=== PATIENT | female | born 1945 | race Caucasian/White ===

== ENCOUNTER 2019-04-21 09:07 | Outpatient (CLI) | payer MEDICARE, SELFPAY ==
[2019-04-21 09:41] LABS: Basophils Absolute Auto 0.1 K/mm3 (0.0-0.1); Basophils Percent Auto 0.7 % (0.2-1.2); Eosinophils Absolute Auto 0.1 K/mm3 (0-0.3); Eosinophils Percent Auto 1.3 % (0-4.4); Hematocrit 47.5 % (37.0-47.0); Hemoglobin 15.4 g/dL (12.0-15.0); Immature Granulocyte Absolute 0.02 K/mm3 (0.00-0.031); Immature Granulocyte Percent A 0.3 % (0-0.5); Lymphocytes Absolute Auto 1.16 K/mm3 (0.9-3.2); Lymphocytes Percent Auto 16.1 % (18.3-44.2); Mean Corpuscular HGB Conc 32.4 g/dl (32-36); Mean Corpuscular Hemoglobin 30.1 pg (26-34); Mean Corpuscular Volume 92.8 fl (80-100); Monocytes Absolute Auto 0.6 K/mm3 (0.1-0.6); Monocytes Percent Auto 8.1 % (2.6-8.5); Neutrophils Absolute Auto 5.3 K/mm3 (1.3-6.7); Neutrophils Percent Auto 73.5 % (45.5-73.1); Platelet Count Result 226 k/mm3 (150-375); Red Blood Count 5.12 M/mm3 (4.2-5.4); Red Cell Distribution Width 12.7 % (11.5-14.5); White Blood Count 7.2 K/mm3 (4.5-10.0)
[2019-04-21 09:57] LABS: Alanine Aminotransferase 29 U/L (4-35); Albumin Level 4.1 g/dL (3.5-5.1); Alkaline Phosphatase 87 U/L (38-126); Aspartate Amino Transferase 32 U/L (14-36); Bilirubin,Total 0.9 mg/dL (0.2-1.3); Blood Urea Nitrogen 17 mg/dL (7-17); Calcium 9.7 mg/dL (8.4-10.2); Carbon Dioxide 33 mmol/L (22-30); Chloride 99 mmol/L (98-107); Estimated Glomerular Filt Rate > 60; Glucose 102 mg/dL (65-105); Potassium 4.8 mmol/L (3.4-5.0); Sodium 143 mmol/L (137-145)
[2019-04-24 04:56] LABS: CA 15-3 14 U/mL (<32)
== END 2019-04-21 09:08 | disposition home or self-care (01) ==
LOC: ANHLAB 09:13
PROVIDERS: PCP Internal Medicine; Visit Provider Internal Medicine Hematology & Oncology
DX: C50.919 Malignant neoplasm of unspecified site of unspecified female breast (principal); Z17.1 Estrogen receptor negative status [ER-]
CPT/HCPCS: 36415; 80053; 85025; 86300

== ENCOUNTER 2019-10-03 07:16 | Outpatient (CLI) | payer MEDICARE, SELFPAY ==
[2019-10-03 07:51] LABS: Hemoglobin A1C 5.4 % (<5.7)
[2019-10-03 07:56] LABS: Alanine Aminotransferase 23 U/L (4-35); Albumin Level 3.8 g/dL (3.5-5.1); Alkaline Phosphatase 86 U/L (38-126); Anion Gap 10.3 mmol/L (7-16); Aspartate Amino Transferase 28 U/L (14-36); Bilirubin,Total 0.6 mg/dL (0.2-1.3); Blood Urea Nitrogen 23 mg/dL (7-17); Calcium 9.1 mg/dL (8.4-10.2); Carbon Dioxide 30 mmol/L (22-30); Chloride 103 mmol/L (98-107); Cholesterol 132 mg/dL (0-200); Estimated Glomerular Filt Rate > 60; Glucose 92 mg/dL (65-105); HDL Direct 38 mg/dL; Potassium 4.3 mmol/L (3.4-5.0); Sodium 139 mmol/L (137-145); Triglycerides 89 mg/dL (<150)
[2019-10-03 08:07] LABS: LDL Cholesterol Direct 73 mg/dL
== END 2019-10-03 07:17 | disposition home or self-care (01) ==
PROVIDERS: PCP Internal Medicine; Visit Provider Internal Medicine
DX: E11.9 Type 2 diabetes mellitus without complications (principal); I10 Essential (primary) hypertension; Z79.899 Other long term (current) drug therapy; E78.2 Mixed hyperlipidemia
CPT/HCPCS: 36415; 80053; 80061; 83036

== ENCOUNTER 2020-01-05 08:08 | Outpatient (CLI) | payer MEDICARE, SELFPAY ==
--- NOTE | ~2020-01-05 | MM_ITS ---
EXAMINATION: MM screening elizabeth BI w hugo HISTORY: Screening TECHNIQUE: Craniocaudal and mediolateral oblique 3-D tomosynthesis images were obtained and synthetic 2-D images were generated. CAD analysis was submitted and interpreted. COMPARISON: Comparison to multiple prior studies sequentially, with oldest reviewed study dated 04/2016. BREAST PARENCHYMAL COMPOSITION: There are scattered areas of fibroglandular density. FINDINGS: Stable fat necrosis in the upper outer quadrant of the left breast, likely prior lumpectomy site. There is no evidence of suspicious mass, calcification, or architectural distortion to suggest malignancy in either breast. There has been no suspicious interval change. IMPRESSION: 1. No mammographic evidence of malignancy. 2. Recommend routine screening mammography in one year. BI-RADS Category 2: Benign finding(s). Reviewed, dictated and finalized at location A. LER HELPER
[2020-01-05 08:55] LABS: Basophils Absolute Auto 0.1 K/mm3 (0.0-0.1); Basophils Percent Auto 0.7 % (0.2-1.2); Eosinophils Absolute Auto 0.1 K/mm3 (0-0.3); Eosinophils Percent Auto 0.7 % (0-4.4); Hematocrit 45.9 % (37.0-47.0); Hemoglobin 15.4 g/dL (12.0-15.0); Immature Granulocyte Absolute 0.03 K/mm3 (0.00-0.031); Immature Granulocyte Percent A 0.4 % (0-0.5); Lymphocytes Absolute Auto 1.18 K/mm3 (0.9-3.2); Lymphocytes Percent Auto 14.3 % (18.3-44.2); Mean Corpuscular HGB Conc 33.6 g/dl (32-36); Mean Corpuscular Hemoglobin 30.6 pg (26-34); Mean Corpuscular Volume 91.1 fl (80-100); Mean Platelet Volume 9.8 fl (7.4-10.4); Monocytes Absolute Auto 0.6 K/mm3 (0.1-0.6); Monocytes Percent Auto 7.7 % (2.6-8.5); Neutrophils Absolute Auto 6.3 K/mm3 (1.3-6.7); Neutrophils Percent Auto 76.2 % (45.5-73.1); Platelet Count Result 230 k/mm3 (150-375); Red Blood Count 5.04 M/mm3 (4.2-5.4); Red Cell Distribution Width 12.5 % (11.5-14.5); White Blood Count 8.3 K/mm3 (4.5-10.0)
[2020-01-05 11:24] LABS: Alanine Aminotransferase 32 U/L (4-35); Albumin Level 4.1 g/dL (3.5-5.1); Alkaline Phosphatase 89 U/L (38-126); Anion Gap 8 mmol/L (8-16); Aspartate Amino Transferase 33 U/L (14-36); Bilirubin,Total 0.7 mg/dL (0.2-1.3); Blood Urea Nitrogen 21 mg/dL (7-17); Calcium 10.4 mg/dL (8.4-10.2); Carbon Dioxide 31 mmol/L (22-30); Chloride 101 mmol/L (98-107); Estimated Glomerular Filt Rate > 60; Glucose 108 mg/dL (65-105); Potassium 4.1 mmol/L (3.4-5.0); Sodium 140 mmol/L (137-145)
[2020-01-08 21:42] LABS: CA 15-3 13 U/mL (<32)
== END 2020-01-05 08:09 | disposition home or self-care (01) ==
PROVIDERS: PCP Internal Medicine; Visit Provider Internal Medicine Hematology & Oncology
DX: Z12.31 Encounter for screening mammogram for malignant neoplasm of breast (principal); C50.919 Malignant neoplasm of unspecified site of unspecified female breast; Z17.1 Estrogen receptor negative status [ER-]
CPT/HCPCS: 36415; 77063; 77067; 80053; 85025; 86300

== ENCOUNTER 2020-05-28 07:27 | Outpatient (CLI) | payer MEDICARE, SELFPAY ==
[2020-05-28 08:07] LABS: Alanine Aminotransferase 30 U/L (4-35); Albumin Level 4.1 g/dL (3.5-5.1); Alkaline Phosphatase 84 U/L (38-126); Anion Gap 4 mmol/L (8-16); Aspartate Amino Transferase 35 U/L (14-36); Bilirubin,Total 0.7 mg/dL (0.2-1.3); Blood Urea Nitrogen 20 mg/dL (7-17); Calcium 9.4 mg/dL (8.4-10.2); Carbon Dioxide 31 mmol/L (22-30); Chloride 104 mmol/L (98-107); Cholesterol 140 mg/dL (0-200); Estimated Glomerular Filt Rate > 60; Glucose 100 mg/dL (65-105); HDL Direct 43 mg/dL; Sodium 139 mmol/L (137-145); Triglycerides 122 mg/dL (<150)
[2020-05-28 08:18] LABS: LDL Cholesterol Direct 71 mg/dL
[2020-05-28 08:31] LABS: Hemoglobin A1C 5.6 % (<5.7)
== END 2020-05-28 07:28 | disposition home or self-care (01) ==
PROVIDERS: PCP Internal Medicine; Referring Provider Internal Medicine Hematology & Oncology; Visit Provider Nurse Practitioner
DX: E78.2 Mixed hyperlipidemia (principal); E11.9 Type 2 diabetes mellitus without complications
CPT/HCPCS: 36415; 80053; 80061; 83036

== ENCOUNTER 2020-07-06 12:43 | Outpatient (CLI) | payer MEDICARE, SELFPAY ==
[2020-07-06 13:05] LABS: Basophils Absolute Auto 0.1 K/mm3 (0.0-0.1); Basophils Percent Auto 0.9 % (0.2-1.2); Eosinophils Absolute Auto 0.1 K/mm3 (0-0.3); Eosinophils Percent Auto 1.6 % (0-4.4); Hematocrit 46.7 % (37.0-47.0); Hemoglobin 15.5 g/dL (12.0-15.0); Immature Granulocyte Absolute 0.01 K/mm3 (0.00-0.031); Immature Granulocyte Percent A 0.1 % (0-0.5); Lymphocytes Absolute Auto 1.54 K/mm3 (0.9-3.2); Lymphocytes Percent Auto 20.2 % (18.3-44.2); Mean Corpuscular HGB Conc 33.2 g/dl (32-36); Mean Corpuscular Hemoglobin 30.3 pg (26-34); Mean Corpuscular Volume 91.4 fl (80-100); Mean Platelet Volume 10.4 fl (7.4-10.4); Monocytes Absolute Auto 0.6 K/mm3 (0.1-0.6); Monocytes Percent Auto 7.5 % (2.6-8.5); Neutrophils Absolute Auto 5.3 K/mm3 (1.3-6.7); Neutrophils Percent Auto 69.7 % (45.5-73.1); Platelet Count Result 226 k/mm3 (150-375); Red Blood Count 5.11 M/mm3 (4.2-5.4); Red Cell Distribution Width 12.8 % (11.5-14.5); White Blood Count 7.6 K/mm3 (4.5-10.0)
[2020-07-06 14:42] LABS: Alanine Aminotransferase 34 U/L (4-35); Albumin Level 4.2 g/dL (3.5-5.1); Alkaline Phosphatase 84 U/L (38-126); Anion Gap 4 mmol/L (8-16); Aspartate Amino Transferase 39 U/L (14-36); Bilirubin,Total 0.6 mg/dL (0.2-1.3); Blood Urea Nitrogen 19 mg/dL (7-17); Calcium 10.4 mg/dL (8.4-10.2); Carbon Dioxide 31 mmol/L (22-30); Chloride 104 mmol/L (98-107); Estimated Glomerular Filt Rate > 60; Glucose 92 mg/dL (65-105); Potassium 4.7 mmol/L (3.4-5.0); Sodium 139 mmol/L (137-145)
[2020-07-11 07:08] LABS: CA 15-3 15 U/mL (<32)
== END 2020-07-06 12:44 | disposition home or self-care (01) ==
LOC: ANHLAB 12:46
PROVIDERS: PCP Internal Medicine; Visit Provider Internal Medicine Hematology & Oncology
DX: C50.919 Malignant neoplasm of unspecified site of unspecified female breast (principal); Z17.1 Estrogen receptor negative status [ER-]
CPT/HCPCS: 36415; 80053; 85025; 86300

== ENCOUNTER 2020-12-06 07:10 | Outpatient (CLI) | payer MEDICARE, SELFPAY ==
[2020-12-06 08:07] LABS: Alanine Aminotransferase 35 U/L (4-35); Albumin Level 4.2 g/dL (3.5-5.1); Alkaline Phosphatase 68 U/L (38-126); Anion Gap 4 mmol/L (8-16); Aspartate Amino Transferase 47 U/L (14-36); Blood Urea Nitrogen 20 mg/dL (7-17); Calcium 9.3 mg/dL (8.4-10.2); Carbon Dioxide 32 mmol/L (22-30); Chloride 104 mmol/L (98-107); Cholesterol 136 mg/dL (0-200); Estimated Glomerular Filt Rate > 60; Glucose 112 mg/dL (65-110); HDL Direct 37 mg/dL; Potassium 4.5 mmol/L (3.4-5.0); Sodium 140 mmol/L (137-145); Triglycerides 127 mg/dL (<150)
[2020-12-06 08:11] LABS: LDL Cholesterol Direct 75 mg/dL
[2020-12-06 09:19] LABS: Hemoglobin A1C 5.9 % (<5.7)
== END 2020-12-06 07:11 | disposition home or self-care (01) ==
PROVIDERS: PCP Internal Medicine; Visit Provider Internal Medicine
DX: E11.9 Type 2 diabetes mellitus without complications (principal); E78.5 Hyperlipidemia, unspecified; I10 Essential (primary) hypertension
CPT/HCPCS: 36415; 80053; 80061; 83036

== ENCOUNTER 2020-12-29 09:22 | Outpatient (CLI) | payer MEDICARE, SELFPAY ==
--- NOTE | ~2020-12-29 | US_ITS ---
EXAMINATION: US aorta DATE: 12/29/2020 14:25 CDT INDICATION: Abdominal aortic aneurysm TECHNIQUE: Grayscale, color Doppler, and pulsed Doppler images of the aorta and common iliac arteries were obtained. COMPARISON: None. FINDINGS: The proximal aorta measures 2.4 cm greatest sagittal dimension. The mid aorta measures 1.6 cm greates t sagittal dimension. The distal aorta measures 1.2 cm greatest sagittal dimension. The right common internal iliac artery measures 1 cm. The left common iliac artery measures 1 cm. There is mild athero sclerotic changes of the aorta. IMPRESSION: 1. Mild atherosclerosis of the aorta without aneurysm. Reviewed, dictated and finalized at location A.
== END 2020-12-29 09:23 | disposition home or self-care (01) ==
PROVIDERS: PCP Internal Medicine; Visit Provider Nurse Practitioner
DX: I71.4 Abdominal aortic aneurysm, without rupture (principal)
CPT/HCPCS: 76775

== ENCOUNTER 2021-01-02 10:37 | Outpatient (CLI) | payer MEDICARE, SELFPAY ==
--- NOTE | ~2021-01-02 | MM_ITS ---
EXAMINATION: MM diagnostic elizabeth BI w hugo HISTORY: History of left breast cancer TECHNIQUE: Additional 3-D tomosynthesis images of the breasts were performed and synthetic 2-D images were generated. CAD analysis was submitted and interpreted. COMPARISON: Comparison to multiple prior studies sequentially, with oldest reviewed study dated 04/2016. BREAST PARENCHYMAL COMPOSITION: Breast composed of scattered areas of fibroglandular density. FINDINGS: There are dystrophic calcifications in the upper outer quadrant of the left breast, likely secondary to fat necrosis from prior lumpectomy. No new masses, calcifications or architectural disto rtion are identified in either breast to suggest malignancy. IMPRESSION: 1. No evidence for malignancy in either breast. No significant interval change. 2. Routine yearly screening mammogram and regular clinical breast examination are recommended. BI-RADS Category 2: Benign finding(s). Reviewed, dictated and finalized at location A. IMPRESSION: 1. No evidence for malignancy in either breast. No significant interval change. 2. Routine yearly screening mammogram and regular clinical breast examination a re recommended. BI-RADS Category 2: Benign finding(s).
[2021-01-02 11:41] LABS: Basophils Percent Auto 0.5 % (0.2-1.2); Eosinophils Absolute Auto 0.1 K/mm3 (0-0.3); Eosinophils Percent Auto 0.8 % (0-4.4); Hematocrit 47.7 % (37.0-47.0); Hemoglobin 16.1 g/dL (12.0-15.0); Immature Granulocyte Absolute 0.03 K/mm3 (0.00-0.031); Immature Granulocyte Percent A 0.4 % (0-0.5); Lymphocytes Absolute Auto 1.25 K/mm3 (0.9-3.2); Lymphocytes Percent Auto 15.1 % (18.3-44.2); Mean Corpuscular HGB Conc 33.8 g/dl (32-36); Mean Corpuscular Hemoglobin 30.5 pg (26-34); Mean Corpuscular Volume 90.3 fl (80-100); Mean Platelet Volume 9.7 fl (7.4-10.4); Monocytes Absolute Auto 0.6 K/mm3 (0.1-0.6); Monocytes Percent Auto 7.5 % (2.6-8.5); Neutrophils Absolute Auto 6.3 K/mm3 (1.3-6.7); Neutrophils Percent Auto 75.7 % (45.5-73.1); Platelet Count Result 252 k/mm3 (150-375); Red Blood Count 5.28 M/mm3 (4.2-5.4); Red Cell Distribution Width 12.6 % (11.5-14.5); White Blood Count 8.3 K/mm3 (4.5-10.0)
[2021-01-02 16:06] LABS: Alanine Aminotransferase 47 U/L (4-35); Albumin Level 4.4 g/dL (3.5-5.1); Alkaline Phosphatase 85 U/L (38-126); Anion Gap 8 mmol/L (8-16); Aspartate Amino Transferase 42 U/L (14-36); Bilirubin,Total 0.9 mg/dL (0.2-1.3); Blood Urea Nitrogen 15 mg/dL (7-17); Calcium 9.5 mg/dL (8.4-10.2); Carbon Dioxide 26 mmol/L (22-30); Chloride 105 mmol/L (98-107); Estimated Glomerular Filt Rate > 60; Glucose 96 mg/dL (65-110); Potassium 3.9 mmol/L (3.4-5.0); Sodium 139 mmol/L (137-145)
[2021-01-02 18:06] LABS: Vitamin D 25 Hydroxy 45.3 ng/mL
[2021-01-05 07:54] LABS: CA 15-3 13 U/mL (<32)
== END 2021-01-02 10:38 | disposition home or self-care (01) ==
PROVIDERS: PCP Internal Medicine; Visit Provider Internal Medicine Hematology & Oncology
DX: C50.919 Malignant neoplasm of unspecified site of unspecified female breast (principal); Z17.0 Estrogen receptor positive status [ER+]; E55.9 Vitamin D deficiency, unspecified; R92.1 Mammographic calcification found on diagnostic imaging of breast
CPT/HCPCS: 36415; 77062; 77066; 80053; 82306; 85025; 86300; G0279

== ENCOUNTER 2021-05-28 08:46 | Outpatient (CLI) | payer MEDICARE, SELFPAY ==
--- NOTE | ~2021-05-28 | DEXA_ITS ---
Bone Density Report Name: ISIDRO MONTALVO Age: 76 Sex: Female Ethnicity: White Date of : 1945 Indication: postmenopausal; height loss; cancer; hysterectomy; Referring Provider: Genie Wilde Study: Bone densitometry was performed. Exam Date: May 28, 2021 Accession number: [id number] Bone Density: Region BMD T-score Z-score Classification AP Spine (L1-L4) 1.014 -0.3 2.2 Normal Femoral Neck (Left) 0.888 0.3 2.5 Normal Total Hip (Left) 0.961 0.2 2.0 Normal Total Hip Bilateral Avg 0.966 0.2 2.0 Normal Femoral Neck (Right) 0.936 0.8 2.9 Normal Total Hip (Right) 0.970 0.2 2.1 Normal World Health Organization criteria for BMD impression classify patients as: Normal (T-score at or above -1.0), Osteopenia (T-score between -1.0 and -2.5), or Osteoporosis (T-score at or below -2.5). 10-year Fracture Risk: FRAX not reported because: All T-scores for Spine Total, Hip Total, Femoral Neck at or above -1.0 Previous Exams: Region Exam Age BMD T-score BMD Change BMD Change Date g/cm2 vs Baseline vs Previous AP Spine(L1-L4) 05/28/2021 76 1.014 -0.3 0.023(2.4%)* 0.023(2.4%)* 01/01/2016 70 0.990 -0.5 Total Hip(Left) 05/28/2021 76 0.961 0.2 -0.026(-2.6%) -0.026(-2.6%) 01/01/2016 70 0.986 0.4 Total Hip(Right) 05/28/2021 76 0.970 0.2 -0.020(-2.0%) -0.020(-2.0%) 01/01/2016 70 0.991 0.4 *Denotes significance at 95% confidence level, LSC for AP Spine = 0.022 g/cm2, LSC for Total Hip = 0.027 g/cm2 Clinical Information Provided by Patient: Has the following medical conditions: Cancer, Hysterectomy Patient maximum height was 65.5 Menopause Age: 28 No regular weight bearing exercise Onset of menses at age 14 Number of children 2 Impression: The patient has normal bone mass. No significant bone loss was observed. Discussion: LOW RISK OF FRACTURE; BONE DENSITY IS WELL ABOVE THE MINIMUM DESIRABLE LEVEL AND ABOVE AVERAGE FOR AGE AND SEX AT ALL SKELETAL SITES TESTED. This person's bone density is above expected limits for age and sex. This is rarely clinically significant, but should be pursued if there are significant musculoskeletal complaints. The patient should follow a healthful lifestyle (good nutrition with adequate calcium and vitamin D, and appropriate weight-bearing exercise). Follow-Up: Consider repeating this study in 5 years or sooner if there is some new clinical indication. Reported by: [facility] on 05/28/2021 9:09:00 AM.
== END 2021-05-28 08:47 | disposition home or self-care (01) ==
LOC: ANHIMG 08:48
PROVIDERS: PCP Internal Medicine; Visit Provider Nurse Practitioner
DX: Z78.0 Asymptomatic menopausal state (principal)
CPT/HCPCS: 77080

== ENCOUNTER 2021-06-20 07:27 | Outpatient (CLI) | payer MEDICARE, SELFPAY ==
[2021-06-20 08:21] LABS: Alanine Aminotransferase 39 U/L (4-35); Albumin Level 4.2 g/dL (3.5-5.1); Alkaline Phosphatase 94 U/L (38-126); Anion Gap 5 mmol/L (8-16); Aspartate Amino Transferase 39 U/L (14-36); Bilirubin,Total 1.4 mg/dL (0.2-1.3); Blood Urea Nitrogen 19 mg/dL (7-17); Calcium 9.3 mg/dL (8.4-10.2); Carbon Dioxide 33 mmol/L (22-30); Chloride 102 mmol/L (98-107); Cholesterol 164 mg/dL (0-200); Estimated Glomerular Filt Rate > 60; Glucose 109 mg/dL (65-110); HDL Direct 40 mg/dL; Potassium 4.7 mmol/L (3.4-5.0); Sodium 140 mmol/L (137-145); Triglycerides 148 mg/dL (<150)
[2021-06-20 08:30] LABS: Hemoglobin A1C 5.6 % (<5.7)
[2021-06-20 08:32] LABS: LDL Cholesterol Direct 80 mg/dL
[2021-06-20 08:45] LABS: Creatinine Urine 100.1 mg/dL
[2021-06-20 08:50] LABS: Microalbumin Urine Random 91.1 mg/L (0-16.7)
== END 2021-06-20 07:28 | disposition home or self-care (01) ==
LOC: ANHLAB 07:30
PROVIDERS: PCP Internal Medicine; Visit Provider Nurse Practitioner
DX: E78.5 Hyperlipidemia, unspecified (principal); E11.9 Type 2 diabetes mellitus without complications
CPT/HCPCS: 36415; 80053; 80061; 82043; 83036

== ENCOUNTER 2021-07-05 08:04 | Outpatient (CLI) | payer MEDICARE, SELFPAY ==
[2021-07-05 08:37] LABS: Basophils Absolute Auto 0.1 K/mm3 (0.0-0.1); Basophils Percent Auto 0.8 % (0.2-1.2); Eosinophils Absolute Auto 0.2 K/mm3 (0-0.3); Eosinophils Percent Auto 2.4 % (0-4.4); Hematocrit 48.4 % (37.0-47.0); Hemoglobin 15.7 g/dL (12.0-15.0); Immature Granulocyte Absolute 0.01 K/mm3 (0.00-0.031); Immature Granulocyte Percent A 0.2 % (0-0.5); Lymphocytes Absolute Auto 1.32 K/mm3 (0.9-3.2); Lymphocytes Percent Auto 20.1 % (18.3-44.2); Mean Corpuscular HGB Conc 32.4 g/dl (32-36); Mean Corpuscular Volume 95.5 fl (80-100); Mean Platelet Volume 10.1 fl (7.4-10.4); Monocytes Absolute Auto 0.6 K/mm3 (0.1-0.6); Monocytes Percent Auto 8.4 % (2.6-8.5); Neutrophils Absolute Auto 4.5 K/mm3 (1.3-6.7); Neutrophils Percent Auto 68.1 % (45.5-73.1); Platelet Count Result 234 k/mm3 (150-375); Red Blood Count 5.07 M/mm3 (4.2-5.4); Red Cell Distribution Width 12.4 % (11.5-14.5); White Blood Count 6.6 K/mm3 (4.5-10.0)
[2021-07-05 10:17] LABS: Alanine Aminotransferase 35 U/L (4-35); Albumin Level 3.9 g/dL (3.5-5.1); Alkaline Phosphatase 87 U/L (38-126); Anion Gap 5 mmol/L (8-16); Aspartate Amino Transferase 35 U/L (14-36); Bilirubin,Total 0.9 mg/dL (0.2-1.3); Blood Urea Nitrogen 17 mg/dL (7-17); Calcium 8.8 mg/dL (8.4-10.2); Carbon Dioxide 28 mmol/L (22-30); Chloride 106 mmol/L (98-107); Estimated Glomerular Filt Rate > 60; Glucose 102 mg/dL (65-110); Sodium 139 mmol/L (137-145)
[2021-07-09 21:26] LABS: CA 15-3 16 U/mL (<32)
== END 2021-07-05 08:05 | disposition home or self-care (01) ==
LOC: ANHLAB 08:06
PROVIDERS: PCP Internal Medicine; Visit Provider Internal Medicine Hematology & Oncology
DX: C50.919 Malignant neoplasm of unspecified site of unspecified female breast (principal); Z17.1 Estrogen receptor negative status [ER-]
CPT/HCPCS: 36415; 80053; 85025; 86300

== ENCOUNTER 2021-12-17 08:07 | Outpatient (CLI) | payer MEDICARE, SELFPAY ==
[2021-12-17 08:43] LABS: Hemoglobin A1C 5.9 % (<5.7)
[2021-12-17 09:22] LABS: Alanine Aminotransferase 40 U/L (6-35); Albumin Level 4.3 g/dL (3.5-5.1); Alkaline Phosphatase 83 U/L (38-126); Anion Gap 9 mmol/L (8-16); Aspartate Amino Transferase 45 U/L (14-36); Blood Urea Nitrogen 20 mg/dL (7-17); Calcium 9.8 mg/dL (8.4-10.2); Carbon Dioxide 33 mmol/L (22-30); Chloride 99 mmol/L (98-107); Cholesterol 165 mg/dL (0-200); Estimated Glomerular Filt Rate > 60; Glucose 107 mg/dL (65-110); HDL Direct 43 mg/dL; Potassium 4.5 mmol/L (3.4-5.0); Sodium 141 mmol/L (137-145); Triglycerides 142 mg/dL (<150)
[2021-12-17 09:34] LABS: LDL Cholesterol Direct 83 mg/dL
[2021-12-17 09:40] LABS: Vitamin D 25 Hydroxy 50.5 ng/mL
== END 2021-12-17 08:08 | disposition home or self-care (01) ==
PROVIDERS: PCP Internal Medicine; Referring Provider Internal Medicine Hematology & Oncology; Visit Provider Nurse Practitioner
DX: E78.2 Mixed hyperlipidemia (principal); E11.9 Type 2 diabetes mellitus without complications; Z13.21 Encounter for screening for nutritional disorder; E55.9 Vitamin D deficiency, unspecified
CPT/HCPCS: 36415; 80053; 80061; 82306; 83036

== ENCOUNTER 2022-01-08 10:27 | Outpatient (CLI) | payer MEDICARE, SELFPAY ==
--- NOTE | ~2022-01-08 | MM_ITS ---
EXAMINATION: MM screening elizabeth BI w hugo HISTORY: Screening mammogram TECHNIQUE: Craniocaudal and mediolateral oblique 3-D tomosynthesis images were obtained and synthetic 2-D images were generated. CAD analysis was submitted and interpreted. COMPARISON: 01/02/2021, 01/05/2020, 12/2018 bilateral screening mammogram examinations BREAST PARENCHYMAL COMPOSITION: There are scattered areas of fibroglandular density. FINDINGS: Status post left partial mastectomy for breast cancer. Stable fibroglandular asymmetry and benign calcifications, especially in the mid to upper outer left breast. Stable mild skin thickening on the left. There is no evidence of suspicious mass, calcification, or architectural distortion to s uggest malignancy in either breast. There has been no suspicious interval change. IMPRESSION: 1. Status post left partial mastectomy for breast cancer. No mammographic evidence of malignancy. 2. Recommend routine screening mammography in one year. BI-RADS Category 2: Benign finding(s). Reviewed, dictated and finalized at location A. BENDER IMPRESSION: 1. Status post left partial mastectomy for breast cancer. No mammographic evide nce of malignancy. 2. Recommend routine screening mammography in one year. BI-RADS Category 2: Benign finding(s).
== END 2022-01-08 10:28 | disposition home or self-care (01) ==
PROVIDERS: PCP Internal Medicine; Visit Provider Internal Medicine Hematology & Oncology
DX: Z12.31 Encounter for screening mammogram for malignant neoplasm of breast (principal)
CPT/HCPCS: 77063; 77067

== ENCOUNTER 2022-01-16 12:40 | Outpatient (CLI) | payer MEDICARE, SELFPAY ==
[2022-01-16 12:55] LABS: Basophils Absolute Auto 0.1 K/mm3 (0.0-0.1); Eosinophils Absolute Auto 0.2 K/mm3 (0-0.3); Eosinophils Percent Auto 2.1 % (0-4.4); Hematocrit 48.4 % (37.0-47.0); Hemoglobin 16.4 g/dL (12.0-15.0); Immature Granulocyte Absolute 0.02 K/mm3 (0.00-0.031); Immature Granulocyte Percent A 0.3 % (0-0.5); Lymphocytes Absolute Auto 1.69 K/mm3 (0.9-3.2); Lymphocytes Percent Auto 23.6 % (18.3-44.2); Mean Corpuscular HGB Conc 33.9 g/dl (32-36); Mean Corpuscular Hemoglobin 31.7 pg (26-34); Mean Corpuscular Volume 93.4 fl (80-100); Mean Platelet Volume 9.5 fl (7.4-10.4); Monocytes Absolute Auto 0.6 K/mm3 (0.1-0.6); Monocytes Percent Auto 8.4 % (2.6-8.5); Neutrophils Absolute Auto 4.6 K/mm3 (1.3-6.7); Neutrophils Percent Auto 64.6 % (45.5-73.1); Platelet Count Result 216 k/mm3 (150-375); Red Blood Count 5.18 M/mm3 (4.2-5.4); White Blood Count 7.2 K/mm3 (4.5-10.0)
[2022-01-21 15:37] LABS: CA 15-3 17 U/mL (<32)
== END 2022-01-16 12:41 | disposition home or self-care (01) ==
LOC: ANHLAB 12:41
PROVIDERS: PCP Internal Medicine; Visit Provider Internal Medicine Hematology & Oncology
DX: C50.919 Malignant neoplasm of unspecified site of unspecified female breast (principal); Z17.1 Estrogen receptor negative status [ER-]
CPT/HCPCS: 36415; 85025; 86300

== ENCOUNTER 2022-06-30 07:26 | Outpatient (CLI) | payer MEDICARE, SELFPAY ==
[2022-06-30 08:02] LABS: Alanine Aminotransferase 42 U/L (6-35); Albumin Level 4.4 g/dL (3.5-5.1); Alkaline Phosphatase 83 U/L (38-126); Anion Gap 2 mmol/L (8-16); Aspartate Amino Transferase 40 U/L (14-36); Blood Urea Nitrogen 18 mg/dL (7-17); Calcium 9.5 mg/dL (8.4-10.2); Carbon Dioxide 36 mmol/L (22-30); Chloride 102 mmol/L (98-107); Cholesterol 158 mg/dL (0-200); Estimated Glomerular Filt Rate > 60; Glucose 96 mg/dL (65-110); HDL Direct 42 mg/dL; Potassium 4.7 mmol/L (3.4-5.0); Sodium 140 mmol/L (137-145); Triglycerides 168 mg/dL (<150)
[2022-06-30 08:12] LABS: Hemoglobin A1C 5.7 % (<5.7)
[2022-06-30 08:13] LABS: LDL Cholesterol Direct 76 mg/dL
[2022-06-30 08:32] LABS: Vitamin D 25 Hydroxy 52.3 ng/mL
== END 2022-06-30 07:27 | disposition home or self-care (01) ==
PROVIDERS: PCP Nurse Practitioner; Visit Provider Internal Medicine
DX: E11.9 Type 2 diabetes mellitus without complications (principal); I10 Essential (primary) hypertension; E55.9 Vitamin D deficiency, unspecified; E78.5 Hyperlipidemia, unspecified
CPT/HCPCS: 36415; 80053; 80061; 82306; 83036

== ENCOUNTER 2023-01-12 09:18 | Outpatient (CLI) | payer MEDICARE, SELFPAY ==
--- NOTE | ~2023-01-12 | MM_ITS ---
EXAMINATION: MM screening elizabeth BI w hugo HISTORY: Screening mammogram, history of left breast cancer TECHNIQUE: Craniocaudal and mediolateral oblique 3-D tomosynthesis images were obtained and synthetic 2-D images were generated. CAD analysis was submitted and interpreted. COMPARISON: 01/08/2022, 01/02/2021, 01/05/2020 BREAST PARENCHYMAL COMPOSITION: There are scattered areas of fibroglandular density. FINDINGS: Lumpectomy changes are again noted in the upper outer quadrant of the left breast. Left taisha ast skin thickening is also consistent with radiation change. No suspicious mass, calcification, or a rchitectural distortion are identified in either breast to suggest malignancy. There has been no susp icious interval change. IMPRESSION: 1. No mammographic evidence of malignancy. 2. Recommend routine screening mammography in one year. BI-RADS Category 2: Benign finding(s). Reviewed, dictated and finalized at location A. ANDER
[2023-01-12 10:21] LABS: Basophils Absolute Auto 0.1 K/mm3 (0.0-0.1); Basophils Percent Auto 0.7 % (0.2-1.2); Eosinophils Absolute Auto 0.1 K/mm3 (0-0.3); Eosinophils Percent Auto 1.6 % (0-4.4); Hematocrit 48.8 % (37.0-47.0); Hemoglobin 15.7 g/dL (12.0-15.0); Immature Granulocyte Absolute 0.02 K/mm3 (0.00-0.031); Immature Granulocyte Percent A 0.3 % (0-0.5); Lymphocytes Absolute Auto 1.27 K/mm3 (0.9-3.2); Lymphocytes Percent Auto 17.4 % (18.3-44.2); Mean Corpuscular HGB Conc 32.2 g/dl (32-36); Mean Corpuscular Hemoglobin 30.8 pg (26-34); Mean Corpuscular Volume 95.7 fl (80-100); Mean Platelet Volume 10.4 fl (7.4-10.4); Monocytes Absolute Auto 0.6 K/mm3 (0.1-0.6); Monocytes Percent Auto 7.7 % (2.6-8.5); Neutrophils Absolute Auto 5.3 K/mm3 (1.3-6.7); Neutrophils Percent Auto 72.3 % (45.5-73.1); Platelet Count Result 217 k/mm3 (150-375); White Blood Count 7.3 K/mm3 (4.5-10.0)
[2023-01-12 10:32] LABS: Alanine Aminotransferase 39 U/L (6-35); Albumin Level 4.1 g/dL (3.5-5.1); Alkaline Phosphatase 86 U/L (38-126); Anion Gap 9 mmol/L (8-16); Aspartate Amino Transferase 36 U/L (14-36); Blood Urea Nitrogen 23 mg/dL (7-17); Calcium 9.4 mg/dL (8.4-10.2); Carbon Dioxide 30 mmol/L (22-30); Chloride 101 mmol/L (98-107); Cholesterol 146 mg/dL (0-200); Estimated Glomerular Filt Rate > 60; Glucose 97 mg/dL (65-110); HDL Direct 41 mg/dL; Hemoglobin A1C 5.6 % (<5.7); Potassium 4.2 mmol/L (3.4-5.0); Sodium 140 mmol/L (137-145); Triglycerides 104 mg/dL (<150)
[2023-01-12 10:49] LABS: LDL Cholesterol Direct 77 mg/dL
[2023-01-12 10:52] LABS: Vitamin D 25 Hydroxy 46.6 ng/mL
== END 2023-01-12 09:19 | disposition home or self-care (01) ==
PROVIDERS: PCP Nurse Practitioner; Referring Provider Family Medicine; Visit Provider Internal Medicine Hematology & Oncology
DX: Z12.31 Encounter for screening mammogram for malignant neoplasm of breast (principal); E11.9 Type 2 diabetes mellitus without complications; E78.2 Mixed hyperlipidemia; I10 Essential (primary) hypertension; I25.10 Atherosclerotic heart disease of native coronary artery without angina pectoris; R79.89 Other specified abnormal findings of blood chemistry; Z13.21 Encounter for screening for nutritional disorder; Z85.3 Personal history of malignant neoplasm of breast; E55.9 Vitamin D deficiency, unspecified
CPT/HCPCS: 36415; 77063; 77067; 80053; 80061; 82306; 82607; 83036; 85025

== ENCOUNTER 2023-01-19 12:18 | Outpatient (CLI) | payer MEDICARE, SELFPAY ==
[2023-01-21 14:32] LABS: CA 15-3 14 U/mL (<32)
== END 2023-01-19 12:19 | disposition home or self-care (01) ==
LOC: ANHLAB 12:20
PROVIDERS: PCP Nurse Practitioner; Visit Provider Internal Medicine Hematology & Oncology
DX: C50.919 Malignant neoplasm of unspecified site of unspecified female breast (principal); Z17.1 Estrogen receptor negative status [ER-]
CPT/HCPCS: 36415; 86300

== ENCOUNTER 2023-08-07 07:36 | Outpatient (CLI) | payer MEDICARE, SELFPAY ==
[2023-08-07 08:14] LABS: Hematocrit 48.6 % (37.0-47.0); Mean Corpuscular HGB Conc 32.9 g/dl (32-36); Mean Corpuscular Hemoglobin 31.1 pg (26-34); Mean Corpuscular Volume 94.6 fl (80-100); Platelet Count Result 224 k/mm3 (150-375); Red Blood Count 5.14 M/mm3 (4.2-5.4); Red Cell Distribution Width 12.2 % (11.5-14.5); White Blood Count 7.7 K/mm3 (4.5-10.0)
[2023-08-07 09:57] LABS: Alanine Aminotransferase 41 U/L (6-35); Albumin Level 4.1 g/dL (3.5-5.1); Alkaline Phosphatase 83 U/L (38-126); Anion Gap 5 mmol/L (4-12); Aspartate Amino Transferase 41 U/L (14-36); Bilirubin,Total 1.2 mg/dL (0.2-1.3); Blood Urea Nitrogen 22 mg/dL (7-17); Calcium 9.2 mg/dL (8.4-10.2); Carbon Dioxide 29 mmol/L (22-30); Chloride 106 mmol/L (98-107); Estimated Glomerular Filt Rate > 60; Glucose 104 mg/dL (65-110); Sodium 140 mmol/L (137-145)
[2023-08-07 10:53] LABS: Hemoglobin A1C 5.7 % (<5.7)
== END 2023-08-07 07:37 | disposition home or self-care (01) ==
LOC: ANHLAB 07:42
PROVIDERS: PCP Family Medicine; Visit Provider Family Medicine
DX: E11.9 Type 2 diabetes mellitus without complications (principal); E78.2 Mixed hyperlipidemia; I10 Essential (primary) hypertension; I25.10 Atherosclerotic heart disease of native coronary artery without angina pectoris; Z00.00 Encounter for general adult medical examination without abnormal findings; Z85.3 Personal history of malignant neoplasm of breast
CPT/HCPCS: 36415; 80053; 83036; 85027

== ENCOUNTER 2024-01-15 09:58 | Outpatient (CLI) | payer MEDICARE, SELFPAY ==
--- NOTE | ~2024-01-15 | MM_ITS ---
EXAMINATION: MM screening elizabeth BI w hugo HISTORY: Screening mammogram, family history of breast cancer in her daughter. TECHNIQUE: Craniocaudal and mediolateral oblique 3-D tomosynthesis images were obtained and synthetic 2-D images were generated. CAD analysis was submitted and interpreted. COMPARISON: 01/12/2023, 01/08/2022, 01/02/2021 BREAST PARENCHYMAL COMPOSITION:Not Dense. There are scattered areas of fibroglandular density. FINDINGS: Stable postprocedural distortion at the upper, outer left breast with coarse benign conside rations. No suspicious mass, calcification, or architectural distortion are identified in either ryan st to suggest malignancy. There has been no suspicious interval change. IMPRESSION: No mammographic evidence of malignancy. Recommend routine screening mammography in one year. BI-RADS Category 2: Benign finding(s). Reviewed, dictated and finalized at [facility]. UNT SUPPORT MANAGER
== END 2024-01-15 09:59 | disposition home or self-care (01) ==
PROVIDERS: PCP Family Medicine; Visit Provider Internal Medicine Hematology & Oncology
DX: Z12.31 Encounter for screening mammogram for malignant neoplasm of breast (principal)
CPT/HCPCS: 77063; 77067

== ENCOUNTER 2024-06-16 12:47 | Outpatient (CLI) | payer MEDICARE, SELFPAY ==
--- OUTSIDE RECORDS SUMMARY | 2024-06-16 13:04 | XMS_ITS | Encounter Summary ---
Author Organization [facility] [employer] [facility] Address [address] [place] [address] Care Team Providers Care Technical Solution Architect Name Role Phone Wilber Bloom MD Primary Care Provider [phone] Reason for Visit * Reason Onset Date Comments Appt Concerns 06/16/2024 Encounter Details Date Type Department Care Team (Late st Contact Info) Description 06/16/2024 Telephone [facility] Oncology and Hematology - [place] [address] [facility] [address] [place] [address] Noe James MD [address] [facility] [address] [place] [address] Appt Concerns Social History Tobacco Use Types Packs/Day Years Used Date Smoking Tobacco: Never Smokeless Tobacco: Never Alcohol Use Standard Drinks/Week Comments No 0 (1 standard drink = 0.6 oz pur e alcohol) Comments No Sex and Gender Information Value Date Recorded Sex Assigned at Female 01/15/2024 3:03 PM TOOTH CLERK Legal Sex Female 1:41 PM TOOTH CLERK Gender Identity Female 01/15/2024 3:03 PM TOOTH CLERK Sexual Orientation Not on file documented as of this encounter Miscellaneous Notes * Telephone Encounter - IvatitoLorena - 06/16/2024 11:32 AM CDT Patient came in today stating that she got a call the other day for someone saying that she needs to get her labs done before her appointment. She never got her labs done. When she came in today she said that she got them done in January 2024 and that she was not getting them done again. Patient told me that this happens every time and that we messed up her appointment. I let her know that we have not had any labs done for our office since January 2023. She told me that we messed up her appointment and if she could not be seen today then she was not coming back for another year. I let her know that we could not see her today because we had not had any blood work done for over a year and we could not go off that blood work. She pulled out lab work that we sent her. I showed her that those labs we expected in December 2022 and in January 2024. She told me that she never cancelled an appointment that we moved it and she was never notified. I went through and checked all of herappointments. She had a phone visit in December 2022 and the appointment was made the next day whenwe got back in clinic as Dr. James does his phone visits at the end of clinic and normally we are already gone before they are finished. We made the appointment and sent her the lab orders out. Those were the lab orders that she had in her hand when she was standing at the window. She said fine you know what just cancel all my appointments, I will find another doctor because I have always had problems with Kerry. I have cancelled her appointments. My office manger Ingrid was also standing in the area when this conversation happened. documented in this encounter Plan of Treatment Upcoming Encounters Date Type Department Care Team (Late st Contact Info) Description 07/01/2024 1:30 PM CDT Office Visit [facility] Oncology and Hematology - [place] [address] [place] [address] Noe James MD [address] [facility] [address] [place] [address] documented as of this encounter Visit Diagnoses Not on filedocumented in this encounter Care Teams Technical Solution Architect Relationship Specialty Start Date End Date Wilber Bloom MD [address] [place] [id number] PCP - General Family Practice 01/19/23 documented as of this encounter
--- OUTSIDE RECORDS SUMMARY | 2024-06-16 13:04 | XMS_ITS | Clinical Summary ---
Author Organization [facility] Address [address] [place] [address] Care Team Providers Care Support Associate Name Role Phone Wilber Bloom MD Primary Care Provider [phone] Allergies No known active allergies Medications atorvastatin (LIPITOR) 20 mg tablet Take 20 mg by mouth late in the day. Active metoprolol tartrate (LOPRESSOR) 25 mg tablet Take 25 mg by mouth 2 times daily. Active pantoprazole (PROTONIX) 40 mg Tablet, Delayed Release (E.C.) Take 20 mg by mouth daily . Active clopidogrel (PLAVIX) 75 mg Tablet Take 75 mg by mouth daily . Active lisinopril (PRINIVIL) 20 mg tablet Take 10 mg by mouth daily . Active magnesium oxide 250 mg Tablet Take 250 mg by mouth daily. Active multivitamin,tx- iron-ca-min (THERA-M) 27-0.4 mg Tablet Take 1 Tablet by mouth daily. Active cholecalciferol, Vitamin D3, 2,000 unit Tablet Take 2,000 Units by mouth daily. Active vit b comp & k-su-leruge-zinc (DIATX ZN) 5-1.5-25 mg Tablet Take 1 Tablet by mouth daily. Active aspirin (MILAGRO) 325 mg tablet Take 81 mg by mouth daily at bedtime. 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 04/03/2016 Pure hypercholesterolemia 04/03/2016 Type 2 diabetes mellitus without complication Benign hypertension 04/03/2016 Resolved Problems Problem Noted Date Diagnosed Date Resolved Date Malignant neoplasm of upper- outer quadrant of left female breast 04/03/2016 05/18/2017 Encounters Date Type Department Care Team Description 06/16/2024 Telephone [facility] Oncology and Hematology [facility] [address] [place] [address] Noe James MD Appt Concerns 06/13/2024 Orders Only [facility] Oncology and Hematology - [place] [address] [place] [address] Noe James MD Malignant neoplasm of breast in female, estrogen receptor negative, unspecified laterality, unspecified site of breast (CMS/HCC) (Primary Dx) from Last 3 Months Family History Medical History Relation Name Comments Heart Disease Brother 1 Diabetes Brother 2 Breast Cancer Daughter Diabetes Father Diabetes Mother Relation Name Status Comments Brother 1 Brother 2 Daughter Alive Father Mother Social History Tobacco Use Types Packs/Day Years Used Date Smoking Tobacco: Never Smokeless Tobacco: Never Tobacco Cessation:Counseling Given: Not Answered Alcohol Use Standard Drinks/Week Comments No 0 (1 standard drink = 0.6 oz pur e alcohol) Comments No Sex and Gender Information Value Date Recorded Sex Assigned at Female 01/15/2024 3:03 PM PLANT ECOLOGIST Legal Sex Female 1:41 PM PLANT ECOLOGIST Gender Identity Female 01/15/2024 3:03 PM PLANT ECOLOGIST Sexual Orientation Not on file Last Filed Vital Signs Vital Sign Reading Time Taken Comments Blood Pressure 119/80 01/19/2023 11:22 AM PLANT ECOLOGIST Pulse 77 01/19/2023 11:22 AM PLANT ECOLOGIST Temperature 36.1 C (96.9 F) 01/19/2023 11:22 AM PLANT ECOLOGIST Respiratory Rate 10 01/19/2023 11:22 AM PLANT ECOLOGIST Oxygen Saturation 99% 01/19/2023 11:22 AM PLANT ECOLOGIST Inhaled Oxygen Concentration - - Weight 76.7 kg (169 lb) 01/19/2023 11:22 AM PLANT ECOLOGIST Height 165.1 cm (5' 5 ) 07/10/2021 9:43 AM CDT Body Mass Index 28.12 07/10/2021 9:43 AM CDT Plan of Treatment Upcoming Encounters Date Type Department Care Team (Late st Contact Info) Description 07/01/2024 1:30 PM CDT Office Visit [facility] Oncology and Hematology - [place] [address] [facility] [address] [place] [address] Noe James MD [address] [facility] [address] [place] [address] Health Maintenance Due Date Last Done Comments DIABETES ANNUAL FOOT EXAM 1963 DIABETES MICROALBUMIN ANNUAL SCREEN 1963 LDL CHOLESTEROL ANNUAL 1963 DTAP/TDAP/TD VACCINES (1 - Tdap) 1964 PNEUMOCOCCAL VACCINE 50+ YEA RS (1 of 2 - PCV) 1964 ZOSTER VACCINE (1 of 2) 1995 RSV VACCINE (60+ or ) (1 - 1-dose 75+ series) 2020 DIABETES HBA1C Q 6 MONTHS 07/13/20232022, 06/30/2022, 12/17/2021, Additional history exists INFLUENZA VACCINE (#1) 2023 11/15/2019 DIABETES ANNUAL RETINAL EXAM 06/28/2024 06/29/2023, 10/25/2015 OSTEOPOROSIS SCREENING 05/28/2026 2, 01/01/2016, 11/09/2013 COLORECTAL SCREENING Discontinued 08/05/2018, 08/06/19 19 Colorectal Cancer Screening Discontinued FIT-DNA Q 3 years Discontinued FIT/FOBT Q 1 year Discontinued Flex Sig/CT Colonography Q 5 years Discontinued Insurance MEDICARE PART A AND B MEDICARE PART A AND B Care Teams Support Associate Relationship Specialty Start Date End Date Wilber Bloom MD [address] [place] [phone] PCP - General Family Practice 01/19/23
--- OUTSIDE RECORDS SUMMARY | 2024-06-16 13:04 | XMS_ITS | Encounter Summary ---
Author Organization [facility] Address [address] [place] [address] Care Team Providers Care Urban Planning Professor Name Role Phone Wilber Bloom MD Primary Care Provider [phone] [phone] Encounter Details Date Type Department Care Team (Late st Contact Info) Description 07/31/2016 Chart Note [facility] Radiation Therapy [address] [place] [address] [place] [address] [place] [address] Social History Tobacco Use Types Packs/Day Years Used Date Smoking Tobacco: Never Alcohol Use Standard Drinks/Week Comments No 0 (1 standard drink = 0.6 oz pur e alcohol) Comments No Sex and Gender Information Value Date Recorded Sex Assigned at Female 01/15/2024 3:03 PM MACHINIST Legal Sex Female 1:41 PM MACHINIST Gender Identity Female 01/15/2024 3:03 PM MACHINIST Sexual Orientation Not on file documented as of this encounter Plan of Treatment Upcoming Encounters Date Type Department Care Team (Late Contact Info) Description 07/01/2024 1:30 PM CDT Office Visit [facility] Oncology and Hematology - [place] [address] [facility] [address] [place] [address] Noe James MD [address] [facility] [address] [place] [address] documented as of this encounter Visit Diagnoses Not on filedocumented in this encounter Care Teams Urban Planning Professor Relationship Specialty Start Date End Date Wilber Bloom MD [address] [place] [phone] PCP - General Family Practice 01/19/23 documented as of this encounter
--- OUTSIDE RECORDS SUMMARY | 2024-06-16 13:04 | XMS_ITS | Referral Summary ---
Author Organization [facility] [address] Address [address] [place] [address] Care Team Providers Care School Lunch Monitor Name Role Phone Wilber Bloom MD Primary Care Provider [phone] [phone] Allergies No known active allergies Medications atorvastatin (LIPITOR) 20 mg tablet Take 1 tablet (20 mg total) by mouth daily Active metoprolol (LOPRESSOR) 25 mg tablet Take 1 tablet (25 mg total) by mouth 2 times daily Active clopidogrel (PLAVIX) 75 mg tablet 12/25/2017 Active cholecalciferol (VITAMIN D-3) 2,000 unit tablet Take 1 tablet (2,000 Units total) by mouth daily Active multivitamin,tx- sjfw-Yd-GF-min 27-0.4 mg tablet Take 1 tablet by mouth daily. Active pantoprazole DR (PROTONIX) 20 mg EC tablet Take 1 tablet (20 mg total) by mouth daily Active lisinopril (PRINIVIL,ZESTRI L) 10 mg tablet Take 1 tablet (10 mg total) by mouth daily Active aspirin 325 mg tablet Take 1 tablet (325 mg total) by mouth daily Active amLODIPine (NORVASC) 5 mg tablet Take 1 tablet (5 mg total) by mouth daily 05/08/2022 Active Active Problems Problem Noted Date Diagnosed Date Coronary artery disease invo lving ute coronary artery of ute heart without angina pectoris 02/04/2018 Social History Tobacco Use Types Packs/Day Years Used Date Smoking Tobacco: Never Smokeless Tobacco: Never Tobacco Cessation:Counseling Given: Not Answered Alcohol Use Standard Drinks/Week Comments Yes 0 (1 standard drink = 0.6 oz pur e alcohol) occassionally Personal Safety Answer Date Recorded Getting School Help Needed Not on file 05/15 Comments Unknown Sex and Gender Information Value Date Recorded Sex Assigned at Not on file Legal Sex Female 10:01 PM CAUSTIC OPERATOR Gender Identity Not on file Sexual Orientation Not on file Last Filed Vital Signs Vital Sign Reading Time Taken Comments Blood Pressure 112/82 08/04/2023 8:59 AM CDT Pulse 76 08/04/2023 8:59 AM CDT Temperature - - Respiratory Rate - - Oxygen Saturation 97% 08/04/2023 8:59 AM CDT Inhaled Oxygen Concentration - - Weight 77.8 kg (171 lb 9.6 oz) 08/04/2023 8:59 A M CDT Height 165.1 cm (5' 5 ) 08/04/2023 8:59 AM CDT Body Mass Index 28.56 08/04/2023 8:59 AM CDT Plan of Treatment Not on file [place] [address] MEDICARE [facility] MEDICARE [facility] Care Teams School Lunch Monitor Relationship Specialty Start Date End Date Wilber Bloom MD PCP - General Family Practice 07/31/22
--- OUTSIDE RECORDS SUMMARY | 2024-06-16 13:04 | XMS_ITS | Clinical Summary ---
Author Organization [facility] [address] Address [address] [place] [address] Care Team Providers Care Clothes Wringer Name Role Phone Wilber Bloom MD Primary Care Provider [phone] [phone] Allergies No known active allergies Medications atorvastatin (LIPITOR) 20 mg tablet Take 1 tablet (20 mg total) by mouth daily Active metoprolol (LOPRESSOR) 25 mg tablet Take 1 tablet (25 mg total) by mouth 2 times daily Active clopidogrel (PLAVIX) 75 mg tablet 12/25/2017 Active cholecalciferol (VITAMIN D-3) 2,000 unit tablet Take 1 tablet (2,000 Units total) by mouth daily Active multivitamin,tx- cbmw-Of-ZJ-min 27-0.4 mg tablet Take 1 tablet by [...] Diagnosed Date Coronary artery disease invo lving [place] coronary artery of [place] heart without angina pectoris 02/04/2018 Medical History Medical History Date Comments Hyperlipidemia Hypertension History of heart attack Breast cancer (HCC) Neuropathy Family History Medical History Relation Name Comments Heart disease Brother Heart disease Father Non-Hodgkin's Lymphoma Mother Relation Name Status Comments Brother (Age 72) Father (Age 70) Mother (Age 93) Social History Tobacco Use Types Packs/Day Years [...] on file Legal Sex Female 10:01 PM DOCUMENTATION DESIGNER Gender Identity Not on file Sexual Orientation Not on file Obstetrics History Last Filed Vital Signs Vital Sign Reading [...] 08/04/2023 8:59 AM CDT Plan of Treatment Health Maintenance Due Date Last Done Comments Depression Screening 1945 Fall Risk Assessment 1945 Hepatitis C Screening 1945 Osteoporosis Screening-Bone Density Scan 1945 DTaP/Tdap/Td Vaccine (1 - Tdap) 1956 Hepatitis B Screening 1963 Well Visit 65+ 2010 Influenza Vaccine (#1) 2023 9, 12/08/2017, 11/18/2016, Additional history exists Pneumococcal vaccine 65+ Completed 12/08/2017, 10/31 Zoster Vaccine Completed 10/14/2018, 08/09/2018 Breast Cancer Screening-Mammogram Discontinued 01/05/2020, 01/03/2019, 01/01/2017 Insurance MEDICARE [facility] [place] [address] [facility]ICARE [facility] Care Teams Clothes Wringer Relationship Specialty Start Date End Date Wilber Bloom MD PCP - General Family Practice 07/31/22
[2024-06-16 14:04] LABS: Basophils Absolute Auto 0.1 K/mm3 (0.0-0.1); Basophils Percent Auto 0.7 % (0.2-1.2); Eosinophils Absolute Auto 0.1 K/mm3 (0-0.3); Eosinophils Percent Auto 1.1 % (0-4.4); Hematocrit 48.2 % (37.0-47.0); Hemoglobin 15.9 g/dL (12.0-15.0); Immature Granulocyte Absolute 0.02 K/mm3 (0.00-0.031); Immature Granulocyte Percent A 0.2 % (0-0.5); Lymphocytes Absolute Auto 1.32 K/mm3 (0.9-3.2); Lymphocytes Percent Auto 15.5 % (18.3-44.2); Mean Corpuscular Hemoglobin 31.1 pg (26-34); Mean Corpuscular Volume 94.1 fl (80-100); Mean Platelet Volume 10.4 fl (7.4-10.4); Monocytes Absolute Auto 0.7 K/mm3 (0.1-0.6); Monocytes Percent Auto 7.6 % (2.6-8.5); Neutrophils Absolute Auto 6.4 K/mm3 (1.3-6.7); Neutrophils Percent Auto 74.9 % (45.5-73.1); Platelet Count Result 251 k/mm3 (150-375); Red Blood Count 5.12 M/mm3 (4.2-5.4); Red Cell Distribution Width 12.2 % (11.5-14.5); White Blood Count 8.5 K/mm3 (4.5-10.0)
[2024-06-16 14:31] LABS: Alanine Aminotransferase 39 U/L (6-35); Albumin Level 4.1 g/dL (3.5-5.1); Alkaline Phosphatase 100 U/L (38-126); Anion Gap 5 mmol/L (4-12); Aspartate Amino Transferase 40 U/L (14-36); Bilirubin,Total 0.8 mg/dL (0.2-1.3); Blood Urea Nitrogen 19 mg/dL (7-17); Calcium 9.6 mg/dL (8.4-10.2); Carbon Dioxide 33 mmol/L (22-30); Chloride 101 mmol/L (98-107); Estimated Glomerular Filt Rate 56; Glucose 103 mg/dL (65-110); Potassium 4.6 mmol/L (3.4-5.0); Sodium 139 mmol/L (137-145)
[2024-06-17 09:04] LABS: CA 15-3 14 U/mL (<32)
== END 2024-06-16 12:48 | disposition home or self-care (01) ==
LOC: ANHLAB 12:50
PROVIDERS: PCP Family Medicine; Visit Provider Internal Medicine Hematology & Oncology
DX: C50.919 Malignant neoplasm of unspecified site of unspecified female breast (principal); Z17.1 Estrogen receptor negative status [ER-]
CPT/HCPCS: 36415; 80053; 85025; 86300

== ENCOUNTER 2024-08-09 10:17 | Outpatient (CLI) | payer MEDICARE, SELFPAY ==
[2024-08-09 10:42] LABS: Hematocrit 47.6 % (37.0-47.0); Hemoglobin 15.7 g/dL (12.0-15.0); Mean Corpuscular Hemoglobin 31.1 pg (26-34); Mean Corpuscular Volume 94.3 fl (80-100); Mean Platelet Volume 9.9 fl (7.4-10.4); Platelet Count Result 225 k/mm3 (150-375); Red Blood Count 5.05 M/mm3 (4.2-5.4); Red Cell Distribution Width 12.5 % (11.5-14.5); White Blood Count 8.2 K/mm3 (4.5-10.0)
[2024-08-09 10:53] LABS: Iron 150 ug/dL (37-170)
[2024-08-09 10:55] LABS: Alanine Aminotransferase 34 U/L (6-35); Albumin Level 4.1 g/dL (3.5-5.1); Alkaline Phosphatase 94 U/L (38-126); Anion Gap 6 mmol/L (4-12); Aspartate Amino Transferase 41 U/L (14-36); Blood Urea Nitrogen 21 mg/dL (7-17); Calcium 9.6 mg/dL (8.4-10.2); Carbon Dioxide 29 mmol/L (22-30); Chloride 104 mmol/L (98-107); Cholesterol 142 mg/dL (0-200); Estimated Glomerular Filt Rate 57; Glucose 102 mg/dL (65-110); HDL Direct 40 mg/dL; Potassium 4.5 mmol/L (3.4-5.0); Sodium 139 mmol/L (137-145); Total Protein 7.3 g/dL (6.3-8.2); Triglycerides 134 mg/dL (<150)
[2024-08-09 10:58] LABS: Creatinine Urine 198.6 mg/dL
--- OUTSIDE RECORDS SUMMARY | 2024-08-09 11:01 | XMS_ITS | Encounter Summary ---
Author Organization [facility] Address [address] [place] [address] Care Team Providers Care Shredded Filler Hopper Feeder Name Role Phone Wilber Bloom MD Primary Care Provider [phone] Encounter Details Date Type Department Care Team (Late st Contact Info) Description 07/31/2016 Chart Note [facility] Radiation Therapy [address] [place] [address] [place] [address] [place] [address] Social History Tobacco Use Types Packs/Day Years Used Date Smoking Tobacco: Never Alcohol Use Standard Drinks/Week Comments No 0 (1 standard drink = 0.6 oz pur e alcohol) Comments No Sex and Gender Information Value Date Recorded Sex Assigned at Female 01/15/2024 3:03 PM SIGNAL PROCESSING ENGINEER Legal Sex Female 1:41 PM SIGNAL PROCESSING ENGINEER Gender Identity Female 01/15/2024 3:03 PM SIGNAL PROCESSING ENGINEER Sexual Orientation Not on file documented as of this encounter Plan of Treatment Upcoming Encounters Date Type Department Care Team (Late st Contact Info) Description 07/03/2025 10:00 AM CDT Office Visit [facility] Oncology and Hematology - [place] [address] [facility] [address] [place] [address] Noe James MD [address] [facility] [address] [place] [address] documented as of this encounter Visit Diagnoses Not on filedocumented in this encounter Care Teams Shredded Filler Hopper Feeder Relationship Specialty Start Date End Date Wilber Bloom MD [address] [place] [id number] PCP - General Family Practice 01/19/23 documented as of this encounter
--- OUTSIDE RECORDS SUMMARY | 2024-08-09 11:01 | XMS_ITS | Clinical Summary ---
Author Organization [facility] [address] [facility] [address] Address [address] [place] [address] Care Team Providers Care Inventory Representative Name Role Phone Wilber Bloom MD Primary Care Provider [phone] [phone] Allergies No known active allergies Medications atorvastatin (LIPITOR) 20 mg tablet Take 1 tablet (20 mg total) by mouth daily Active metoprolol (LOPRESSOR) 25 mg tablet Take 1 tablet (25 mg total) by mouth 2 times daily Active clopidogrel (PLAVIX) 75 mg tablet 12/25/2017 Active cholecalciferol (VITAMIN D-3) 2,000 unit tablet Take 1 tablet (2,000 Units total) by mouth daily Active multivitamin,tx- cwqw-Gb-FP-min 27-0.4 mg tablet Take 1 tablet by [...] Diagnosed Date Coronary artery disease invo lving cowlitz coronary artery of cowlitz heart without angina pectoris 02/04/2018 Encounters Date Type Department Care Team Description 08/09/2024 10:45 AM CDT Office Visit [facility] Cardiology [address] [place] [address] Len Druan MD Coronary artery disease involving cowlitz coronary artery of cowlitz heart without angina pectoris (Primary Dx) from Last 3 Months Medical History Medical History Date Comments Hyperlipidemia [...] on file Legal Sex Female 10:01 PM SECOND MILLER Gender Identity Not on file Sexual Orientation Not on file Obstetrics History Last Filed Vital Signs Vital Sign Reading Time Taken Comments Blood Pressure 138/82 08/09/2024 10:37 AM CDT Pulse 64 08/09/2024 10:37 AM CDT Temperature - - Respiratory Rate - - Oxygen Saturation 97% 08/09/2024 10:37 AM CDT Inhaled Oxygen Concentration - - Weight 75.1 kg (165 lb 8 oz) 08/09/2024 10:37 AM CDT Height 165.1 cm (5' 5) 08/09/2024 10:37 AM CDT Body Mass Index 27.54 08/09/2024 10:37 AM CDT Plan of Treatment Health Maintenance Due Date Last Done Comments Depression Screening 1945 Fall Risk Assessment 1945 Hepatitis C Screening 1945 Osteoporosis Screening-Bone Density Scan 1945 DTaP/Tdap/Td Vaccine (1 - Tdap) 1956 Hepatitis B Screening 1963 Well Visit 65+ 2010 Influenza Vaccine (Season Ended) 2024 12/19/2018, 12/08/2017, 11/18/2016, Additional history exists Pneumococcal vaccine 65+ Completed 12/08/2017, 10/31 Zoster Vaccine Completed 10/14/2018, 08/09/2018 Insurance MEDICARE [facility] MEDICARE BLUE CROSS MEDICARE SUPPLEMENT Care Teams Inventory Representative Relationship Specialty Start Date End Date Wilber Bloom MD PCP - General Family Practice 07/31/22
--- OUTSIDE RECORDS SUMMARY | 2024-08-09 11:01 | XMS_ITS | Referral Summary ---
Author Organization [facility] [address] [facility] [address] Address [address] [place] [address] Care Team Providers Care Farm Mechanic Apprentice Name Role Phone Wilber Bloom MD Primary Care Provider [phone] [phone] Encounters Date Type Department Care Team Description 08/09/2024 10:45 AM CDT Office Visit [facility] Cardiology [address] [facility] [address] [place] [address] Len Duran MD Coronary artery disease involving southern ute coronary artery of southern [place] heart without angina pectoris (Primary Dx) from Last 3 Months Allergies No known active allergies Medications atorvastatin (LIPITOR) 20 mg tablet Take 1 tablet (20 mg total) by mouth daily Active metoprolol (LOPRESSOR) 25 mg tablet Take 1 tablet (25 mg total) by mouth 2 times daily Active clopidogrel (PLAVIX) 75 mg tablet 12/25/2017 Active cholecalciferol (VITAMIN D-3) 2,000 unit tablet Take 1 tablet (2,000 Units total) by mouth daily Active multivitamin,tx- bbon-Zm-UU-min 27-0.4 mg tablet Take 1 tablet by [...] Diagnosed Date Coronary artery disease invo lving southern [place] coronary artery of [place] heart without angina pectoris 02/04/2018 Social [...] on file Legal Sex Female 10:01 PM HONEY 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
--- OUTSIDE RECORDS SUMMARY | 2024-08-09 11:01 | XMS_ITS | Encounter Summary ---
Author Organization [facility] Address [address] [place] [address] Care Team Providers Care Pretzel Twister Name Role Phone Wilber Bloom MD Primary Care Provider [phone] [phone] Reason for Visit * Reason Comments Coronary Artery Disease Annual f/u Encounter Details Date Type Department Care Team (Late st Contact Info) Description 08/09/2024 10:45 AM CDT Office Visit [facility] Cardiology [address] [place] [address] Len Duran MD [address] [facility] [address] [place] [address] Coronary artery disease involving mi'kmaq coronary artery of mi'kmaq heart without angina pectoris (Primary Dx) Social History Tobacco Use Types Packs/Day Years Used Date Smoking Tobacco: Never Smokeless Tobacco: Never Alcohol Use Standard Drinks/Week Comments Yes 0 (1 standard drink = 0.6 oz pur e alcohol) occassionally Personal Safety Answer Date Recorded Getting School Help Needed Not on file 05/15 Comments Unknown Sex and Gender Information Value Date Recorded Sex Assigned at Not on file Legal Sex Female 10: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 female who presents for follow up of coronary artery disease. This is a patient who was initially seen back in 2000. At that time the patient has sustained a non ST elevationMI and angiographically was found to have a pattern of act ectaticly dilated coronary arteries but with no flow- limiting lesions. She was therefore treated medically. Because of this she has been taking dual anti-platelet therapy chronically. In subsequent follow-up she was found to be polycythemic by her PCP and at that time was advised to increase her aspirin dosage to 325 mg. The patient doesfollow with a oncologist as well because of her history of breast cancer. It is their opinion that her erythrocytosis is related to sleep apnea. She presents for annual office follow-up appointment. The patient is doing well and describes no cardiovascular symptoms or concerns. She continues taking aspirin and she leads a fairly active lifestyle does not have any exertional symptoms of any kind offers no symptoms of palpitations orthopnea PND or edema. REVIEW OF SYSTEMS General ROS: negative for - chills, fatigue, fever, malaise, night sweats, weight gain or weight loss Psychological ROS: negative for - anxiety, depression, memory difficulties or sleep disturbances Ophthalmic ROS: negative for - blurry vision, decreased vision, loss of vision or scotomata ENT ROS: negative for - epistaxis, headaches, hearing change, nasal congestion, nasal discharge, sore throat, vertigo or visual changes Hematological and Lymphatic ROS: negative for - bleeding problems, blood clots, bruising, fatigue or weight loss Endocrine ROS: negative for - hot flashes, palpitations, polydipsia/polyuria or unexpected weight changes Respiratory ROS: negative for - cough, hemoptysis, orthopnea, shortness of breath, tachypnea or wheezing Cardiovascular ROS: negative for - chest pain, dyspnea on exertion, edema, irregular heartbeat, loss of consciousness, murmur, orthopnea, palpitations, paroxysmal nocturnal dyspnea, rapid heart rate or shortness of breath Gastrointestinal ROS: negative for - abdominal pain, appetite loss, blood in stools, constipation, diarrhea, gas/bloating, heartburn, hematemesis, melena or nausea/vomiting Genito-Urinary ROS: negative for - dysuria, erectile dysfunction or hematuria Musculoskeletal ROS: negative for - joint pain, muscle pain or muscular weakness Dermatological ROS: negative for dry skin, eczema, pruritus and rash HOME MEDICATIONS Current Outpatient Medications: amLODIPine (NORVASC) 5 mg tablet, Take 1 tablet (5 mg total) by mouth daily, Disp: , Rfl: aspirin 325 mg tablet, Take 1 tablet (325 mg total) by mouth daily, Disp: , Rfl: atorvastatin (LIPITOR) 20 mg tablet, Take 1 tablet (20 mg total) by mouth daily, Disp: , Rfl: cholecalciferol (VITAMIN D-3) 2,000 unit tablet, Take 1 tablet (2,000 Units total) by mouth daily, Disp: , Rfl: clopidogrel (PLAVIX) 75 mg tablet, , Disp: , Rfl: lisinopril (PRINIVIL,ZESTRIL) 10 mg tablet, Take 1 tablet (10 mg total) by mouth daily, Disp: , Rfl: metoprolol (LOPRESSOR) 25 mg tablet, Take 1 tablet (25 mg total) by mouth 2 times daily, Disp: , Rfl: multivitamin,el-tgzv-Gm-FA-min 27-0.4 mg tablet, Take 1 tablet by mouth daily., Disp: , Rfl: pantoprazole DR (PROTONIX) 20 mg EC tablet, Take 1 tablet (20 mg total) by mouth daily, Disp: , Rfl: LABS AND OTHER DIAGNOSTIC TESTS No results found for: CHOL No results found for: HDL No results found for: LDLCALC No results found for: TRIG No results found for: CHOLHDL No results found for: WBC, HGB, HCT, MCV, PLT No lab exists for component: LABALBU PHYSICAL EXAM Vitals BP 138/82 (BP Location: Left arm, Patient Position: Sitting) Pulse 64 Ht 165.1 cm (5' 5) Wt 75.1 kg (165 lb 8 oz) SpO2 97% BMI 27.54 kg/m?? Physical Examination: General appearance - alert, well appearing, and in no distress, oriented to person, place, and time and acyanotic, in no respiratory distress Mental status - affect appropriate to mood Eyes - extraocular eye movements intact, sclera anicteric, no pallor Ears - external earsappear normal, hearing grossly normal bilaterally Nose - normal and patent, no erythema or discharge Mouth - mucous membranes moist, pharynx appears normal, dental hygiene good and tongue normal Neck - supple, no significant neck masses, carotids upstroke normal bilaterally, no bruits, no JVD Chest - clear to auscultation, no wheezes, rales or rhonchi, symmetric air entry, no tachypnea, retractions or cyanosis Heart - normal rate, regular rhythm, normal S1, S2, no murmurs, rubs, clicks or gallops, no JVD Abdomen - soft, nontender, nondistended, no masses or organomegaly bowel sounds normal Neurological - alert, oriented, normal speech, no focal findings or movement disorder noted Musculoskeletal - no joint tenderness, deformity or swelling, no muscular tenderness noted Extremities - peripheral pulses normal, no pedal edema, no clubbing or cyanosis Skin - normal coloration and turgor, no rashes, no suspicious skin lesions noted ASSESSMENT Lois was seen today for coronary artery disease. Diagnoses and all orders for this visit: Coronary artery disease involving mi'kmaq coronary artery of mi'kmaq heart without angina pectoris PLAN/RECOMMENDATIONS Patient is doing well and stable from a cardiac point of view will continue to see her annually or p.r.n. Len Duran MD documented in this encounter Plan of Treatment Not on file documented as of this encounter Visit Diagnoses Diagnosis Coronary artery disease involving mi'kmaq coronary artery of mi'kmaq heart without angina pectoris- Primary documented in this encounter Care Teams Pretzel Twister Relationship Specialty Start Date End Date Wilber Bloom MD PCP - General Family Practice 07/31/22 documented as of this encounter
--- OUTSIDE RECORDS SUMMARY | 2024-08-09 11:01 | XMS_ITS | Clinical Summary ---
Author Organization [facility] Address [address] [place] [address] Care Team Providers Care Edger Operator Name Role Phone Wilber Bloom MD Primary Care Provider [phone] [phone] Allergies No known active allergies Medications atorvastatin [...] mouth daily. Active vit b comp & k-kr-mphhrb-zinc (DIATX ZN) 5-1.5-25 mg Tablet Take 1 Tablet by mouth daily. Active aspirin (MILAGRO) 325 mg tablet Take 81 mg by mouth daily at bedtime. Active Active Problems Problem Noted Date Diagnosed Date Erythrocytosis 01/09/2021 History of breast cancer 05/18/2017 Family history of malignant neoplasm of breast in first degree relative diagnosed when younger than 50 years of age 0305/23/2016 Atherosclerosis of lime co ronary artery of lime heart without angina pectoris 04/03/2016 Pure hypercholesterolemia 04/03/2016 Type 2 diabetes mellitus without complication Benign hypertension 04/03/2016 Resolved Problems Problem Noted Date Diagnosed Date Resolved Date Malignant neoplasm of upper- outer quadrant of left female breast 04/03/2016 05/18/2017 Encounters Date Type Department Care Team Description 07/01/2024 1:30 PM CDT Office Visit [facility] Oncology and Hematology [facility] [address] [place] [address] Noe James MD Malignant neoplasm of breast in female, estrogen receptor negative, unspecified laterality, unspecified site of breast (CMS/HCC) (Primary Dx); Visit for screening mammogram 06/21/2024 External Device Data STL ABSTRACTION Provider, Abstract 06/21/2024 External Device Data STL ABSTRACTION Provider, Abstract 06/20/2024 Orders Only [facility] Oncology and [facility] [address] [place] [address] Noe James MD 06/16/2024 Telephone [facility] Oncology and Hematology [facility] [address] [place] [address] Noe James MD Appt Concerns 06/13/2024 Orders Only [facility] Oncology and Hematology [facility] [address] [place] [address] Noe James MD Malignant neoplasm of breast [...] Sex Assigned at Female 01/15/2024 3:03 PM ART HANDLER Legal Sex Female 1:41 PM ART HANDLER Gender Identity Female 01/15/2024 3:03 PM ART HANDLER Sexual Orientation Not on file Last Filed Vital Signs Vital Sign Reading Time Taken Comments Blood Pressure 131/81 07/01/2024 1:25 PM CDT Pulse 61 07/01/2024 1:25 PM CDT Temperature 35.9 C (96.6 F) 07/01/2024 1:25 PM CDT Respiratory Rate 15 07/01/2024 1:25 PM CDT Oxygen Saturation 96% 07/01/2024 1:25 PM CDT Inhaled Oxygen Concentration - - Weight 75.1 kg (165 lb 9.6 oz) 07/01/2024 1:25 P M CDT Height 165.1 cm (5' 5) 07/10/2021 9:43 AM CDT Body Mass Index 27.56 07/10/2021 9:43 AM CDT Plan of Treatment Upcoming Encounters Date Type Department Care Team (Late st Contact Info) Description 07/03/2025 10:00 AM CDT Office Visit [facility] Oncology and Hematology - [place] [address] [place] [address] [facility] [address] [place] [address] Noe James MD [address] [facility] [address] [place] [address] Health Maintenance Due Date Last [...] EXAM 06/28/2024 06/29/2023, 10/25/2015 OSTEOPOROSIS SCREENING 05/28/2026 , 01/01/2016, 11/09/2013 COLORECTAL SCREENING Discontinued 08/05/2018, 08/06/19 19 Colorectal Cancer Screening Discontinued FIT-DNA Q 3 years Discontinued FIT/FOBT Q 1 year Discontinued Flex Sig/CT Colonography Q 5 years Discontinued Procedures Procedure Name Priority Date/Time Associated Diagnosis Comments CANCER ANTIGEN 15-3 Routine 06/16/2024 11:09 AM CDT from Last 3 Months Results * CANCER ANTIGEN 15-3 (06/16/2024 11:09 AM CDT) Blood us Noe James MD CHEMISTRY ORDERABLES Final Resu lt from Last 3 Months Insurance MEDICARE PART A AND B MEDICARE PART A AND B BCBS SUPP Care Teams Edger Operator Relationship Specialty Start Date End Date Wilber Bloom MD [address] [place] [phone] PCP - General Family Practice 01/19/23
[2024-08-09 11:02] LABS: MALB Creatinine Ratio 71.1 mg/g (0-30); Microalbumin Urine Random 141.2 mg/L (0-16.7)
[2024-08-09 11:03] LABS: Percent Iron Saturation 53 % (20-50)
[2024-08-09 11:06] LABS: LDL Cholesterol Direct 66 mg/dL
[2024-08-09 11:45] LABS: Hemoglobin A1C 5.7 % (<5.7)
== END 2024-08-09 10:18 | disposition home or self-care (01) ==
PROVIDERS: PCP Family Medicine; Visit Provider Family Medicine
DX: R25.2 Cramp and spasm (principal); E11.9 Type 2 diabetes mellitus without complications; Z00.00 Encounter for general adult medical examination without abnormal findings; R79.89 Other specified abnormal findings of blood chemistry; I25.10 Atherosclerotic heart disease of native coronary artery without angina pectoris; I10 Essential (primary) hypertension; Z79.899 Other long term (current) drug therapy; I71.40 Abdominal aortic aneurysm, without rupture, unspecified
CPT/HCPCS: 36415; 80053; 80061; 82043; 82306; 82607; 82728; 83036; 83540; 83550; 85027

== ENCOUNTER 2025-01-16 09:30 | Outpatient (CLI) | payer MEDICARE, SELFPAY ==
--- NOTE | ~2025-01-16 | MM_ITS ---
EXAMINATION: screening [facility] BI w hugo INDICATION: Asymptomatic, referred for screening mammogram. History of Left partial mastectomy. COMPARISON: 01/15/2024 through 01/03/2019 TECHNIQUE: Digital Breast Tomosynthesis CC, MLO views were obtained of Both breasts with computer-aided detection to assist in interpretation of the study. FINDINGS: There are scattered areas of fibroglandular density. Posttreatment changes in Left breast are stable. No new focal dominant mass, architectural distortion, or suspicious microcalcifications are identified. There are no features to suggest malignancy. IMPRESSION: Stable benign mammogram. No evidence of malignancy in the breast. BI-RADS 2, BENIGN Reviewed, dictated and finalized at location B. TURE BANDER
== END 2025-01-16 09:31 | disposition home or self-care (01) ==
LOC: ANHFOHIMG 09:32
PROVIDERS: PCP Family Medicine; Visit Provider Internal Medicine Hematology & Oncology
DX: Z12.31 Encounter for screening mammogram for malignant neoplasm of breast (principal)
CPT/HCPCS: 77063; 77067